=== PATIENT | female | born 1995 | race Caucasian/White ===

== ENCOUNTER 2019-06-06 06:03 | Day surgery (SDC) | payer MEDICAID, OTHER ==
[2019-06-04 11:19] VITALS: BMI 59.3
[2019-06-06] MEDS ORDERED: ALPRAZolam 0.25 MG TAB PO PRN (06:34)
[2019-06-06] MEDS ORDERED: NITROGLYCERIN SL TABS 0.4 MG TAB SUBLINGUAL PRN (06:34)
[2019-06-06] MEDS ORDERED: ALPRAZolam 0.5 MG TAB PO PRN (06:34)
[2019-06-06] MEDS ORDERED: SODIUM CHLORIDE 0.9% 1,000 ML in EMPTY BAG 1 BAG IV ONE (06:34)
[2019-06-06] MEDS ORDERED: ATORVASTATIN 80 MG TAB PO ONE (07:00)
[2019-06-06] MEDS ORDERED: ASPIRIN 325 MG TAB PO ONE (07:00)
[2019-06-06 07:08] VITALS: TEMP 97.8
[2019-06-06] MEDS ORDERED: SODIUM CHLORIDE 0.9% 1,000 ML IV ONE (07:08)
[2019-06-06 07:21] LABS: Basophils % (A) 0 %; Eosinophils # (A) 0.1 k/uL (0-0.7); Eosinophils % (A) 1 %; HGB 14.2 gm/dL (11.4-16.0); Lymphocytes # (A) 1.9 k/uL (1.0-4.8); Lymphocytes % (A) 24 %; MCH 29.1 pg (25.0-35.0); MCHC 32.2 g/dL (31.0-37.0); MCV 90.3 fL (80.0-100.0); Mean Platelet Volume 9.2; Monocytes # (A) 0.5 k/uL (0-1.0); Monocytes % (A) 6 %; Neutrophils # (A) 5.3 k/uL (1.3-7.7); Neutrophils % (A) 67 %; Platelet Count 200 k/uL (150-450); RBC 4.87 m/uL (3.80-5.40); RDW 12.5 % (11.5-15.5); WBC 7.9 k/uL (3.8-10.6)
[2019-06-06] MEDS ORDERED: VERAPAMIL 2.5 MG/ML 2 ML AMP ONE (07:27)
[2019-06-06] MEDS ORDERED: LIDOCAINE 1% INJ 10MG/ML (20 ML MDV) ONE (07:27)
[2019-06-06] MEDS ORDERED: HEPARIN SODIUM 1,000 UN/ML (10ML VL) ONE (07:28)
[2019-06-06] MEDS ORDERED: fentaNYL (PF) 50 MCG/ML 2 ML AMP ONE (07:28)
[2019-06-06 07:30] LABS: African American GFR (CKD) >90 (>60 ml/min/1.73 sqM); Anion Gap 9 mmol/L; Blood Urea Nitrogen 17 mg/dL (7-17); Calcium 9.5 mg/dL (8.4-10.2); Carbon Dioxide 26 mmol/L (22-30); Chloride 105 mmol/L (98-107); Glucose 96 mg/dL (74-99); Non-African American GFR(CKD) >90 (>60 ml/min/1.73 sqM); Potassium 4.3 mmol/L (3.5-5.1); Sodium 140 mmol/L (137-145)
[2019-06-06] MEDS ORDERED: fentaNYL (PF) 50 MCG/ML 2 ML AMP IV ONE (07:41)
[2019-06-06] MEDS ORDERED: LIDOCAINE 1% INJ 10MG/ML (20 ML MDV) SQ ONE (07:42)
[2019-06-06] MEDS ORDERED: VERAPAMIL SYRINGE (5 MG/10 ML) INTRAARTER ONE (07:43)
[2019-06-06] MEDS ORDERED: MIDAZOLAM PF (FBP) 2 MG/2 ML VIAL IV ONE (07:46)
[2019-06-06] MEDS ORDERED: HEPARIN SODIUM 1,000 UN/ML (10ML VL) IV ONE (08:00)
[2019-06-06 08:07] LABS: O2 Sat Blood Gas 97.1 %
[2019-06-06 08:11] LABS: O2 Sat Blood Gas 74.5 %
[2019-06-06 08:14] LABS: O2 Sat Blood Gas 74.7 %
[2019-06-06] MEDS ORDERED: IOPAMIDOL-370 125ML BTL INJ ONE (08:20)
[2019-06-06] MEDS ORDERED: RX INFO: IV CONTRAST WAS GIVEN 1 EACH MISC MISCELLANE PRN (08:23)
[2019-06-06] MEDS ORDERED: ALBUTEROL NEBULIZED 2.5 MG/3 ML INHALATION PRN (08:24)
[2019-06-06] MEDS ORDERED: AZELASTINE HCL BOTH EYES PRN (08:24)
[2019-06-06] MEDS ORDERED: ALBUTEROL INHALER 60 PUFF/8 GM INHALER INHALATION PRN (08:24)
[2019-06-06] MEDS ORDERED: SODIUM CHLORIDE 0.9% 1,000 ML IV SCH (08:30)
--- NOTE | 2019-06-06 08:45 | CC ---
CARDIAC CATHETERIZATION REPORT Mrs. Mcmillan is a 23-year-old female with no prior documented history of coronary artery disease who recently was found to have evidence of cardiomyopathy of unclear etiology and she had symptoms of dyspnea on exertion. In view of that, recommendation was made regarding cardiac catheterization. The procedure as well as the risks and the complications were discussed with the patient who is in full understanding and agreement. PROCEDURE: Patient was brought to the cath lab radiology technician in a fasting semi-sedated state after receiving fentanyl and Benadryl and achieving moderate conscious sedated state. Using Xylocaine anesthesia in the Seldinger technique, a 6-Canadian sheath was introduced in the right radial artery. The intravenous catheter in the right basilic vein was exchanged over wire to a 6-Canadian sheath. Following that, right heart catheterization was performed using [place]-Margie catheter. Multiple pressures and samples were obtained. Cardiac output by thermodilution was calculated. Following that, selective right and left coronary angiography performed using 5-Canadian 3.5 bend right and left Shawn catheter. Multiple views of the coronary artery including hemiaxial views were obtained. Following that, 5- Canadian tight pigtail catheter was introduced in the left ventricle and a 30-degree CLEMENTS view of the left ventricle was obtained. Following that, catheter and sheaths were removed. Hemostasis was obtained with deployment of a TR band and compression of the venous sheath. There was no immediate complication. Of note, the patient received 5000 units of intravenous heparin as well as intra-arterial verapamil. FINDINGS: HEMODYNAMICS: Right atrial saturation 75%, pulmonary artery saturation 75%, femoral artery saturation of 97%. Pulmonary artery systolic pressure of 30 with a diastolic of 14 and a mean of 20 mmHg. Pulmonary capillary wedge pressure: A-wave of 9, V-wave of 10 with a mean of 8 mmHg. Right ventricular systolic pressure of 32 mmHg with an end- diastolic of 6 mmHg. Right atrial A-wave of 4, V-wave of 6 with a mean of 4 mmHg. There was no gradient across the aortic valve. The left ventricular end-diastolic pressure was 16 to 18 mmHg. Cardiac output by thermodilution of 8.6 L/minute. CORONARIES: LEFT MAIN: This is a short size vessel large in caliber bifurcating left circumflex, left anterior descending artery. Left main coronary artery has no evidence of high- grade stenosis. LEFT ANTERIOR DESCENDING ARTERY: This is a large-sized vessel reaching to the apex, giving rise to a very proximal diagonal branch. Left anterior descending artery as well as branches have no evidence of obstructive coronary artery disease. LEFT CIRCUMFLEX: This is a nondominant large vessel giving rise to a large obtuse marginal branch. The left circumflex as well as branches have no evidence of obstructive coronary artery disease. RIGHT CORONARY ARTERY: This is a dominant vessel large in caliber bifurcating distally PDA and posterolateral segment and branches. The right coronary artery as well as branches have no evidence of obstructive coronary artery disease. LEFT VENTRICULOGRAM: Left ventriculogram was performed in 30-degree CLEMENTS view and revealed evidence of global hypokinesis. The estimated ejection fraction is 40%. There was no significant mitral regurgitation. CONCLUSION: 1. Normal coronary arteries. 2. Evidence of nonischemic cardiomyopathy with a moderately impaired left ventricular systolic function. 3. No evidence of pulmonary hypertension. MMODL / IJN: [id number] /
[2019-06-06] MEDS ORDERED: METOPROLOL TARTRATE 25 MG TAB PO SCH (09:00)
[2019-06-06] MEDS ORDERED: LISINOPRIL 5 MG TAB PO SCH (09:00)
[2019-06-06] MEDS ORDERED: MONTELUKAST 10 MG TAB PO SCH (09:00)
[2019-06-06] MEDS ORDERED: SERTRALINE 50 MG TAB PO SCH (09:00)
[2019-06-06] MEDS ORDERED: ACETAMINOPHEN TAB 325 MG TAB PO PRN (09:06)
[2019-06-06 15:03] VITALS: RESP 16
[2019-06-06 19:56] VITALS: BP 112/65; PULSE 100
== END 2019-06-06 13:31 | disposition home or self-care (01) ==
LOC: CATHCVL 06:03
PROVIDERS: ATTEND Internal Medicine Interventional Cardiology
DX: I42.8 Other cardiomyopathies (principal); R06.00 Dyspnea, unspecified; R06.09 Other forms of dyspnea; Z79.3 Long term (current) use of hormonal contraceptives; Z79.51 Long term (current) use of inhaled steroids; Z79.899 Other long term (current) drug therapy; Z88.0 Allergy status to penicillin; Z88.8 Allergy status to other drugs, medicaments and biological substances; Z82.49 Family history of ischemic heart disease and other diseases of the circulatory system
CPT/HCPCS: 93460; 81025; 80048; 85018; 82810; 85025; C1751; C1894; J2001; J3010; J1644; Q9967; J2250

== ENCOUNTER → 2019-08-20 | Outpatient (CLI) | payer MEDICAID ==
[2019-08-21 04:19] LABS: T4, Free (Free Thyroxine) 1.1 ng/dL (0.80-1.80)
== END | disposition home or self-care (01) ==
LOC: LABT 15:39
DX: R79.89 Other specified abnormal findings of blood chemistry (principal)
CPT/HCPCS: 36415; 84439; 84481

== ENCOUNTER → 2022-08-05 | Outpatient (CLI) | payer OTHER ==
[2022-08-06 02:57] LABS: African American GFR (CKD) 135.8 (60.0-200.0); Anion Gap 15.3 mmol/L (10.00-18.00); BUN/Creat Ratio 25.07 Ratio (12.00-20.00); Blood Urea Nitrogen 17.5 mg/dL (9.0-27.0); Carbon Dioxide 21.1 mmol/L (20.0-27.5); Non-African American GFR(CKD) 117.2 (60.0-200.0); Potassium 4.3 mmol/L (3.5-5.5)
== END | disposition home or self-care (01) ==
LOC: LABWHC1 15:52
PROVIDERS: ATTEND Internal Medicine Interventional Cardiology
DX: I42.8 Other cardiomyopathies (principal)
CPT/HCPCS: 36415; 80048

== ENCOUNTER 2023-03-30 10:40 | Day surgery (SDC) | payer OTHER ==
[2023-03-28 12:25] VITALS: BMI 58.4
--- NOTE | 2023-03-29 12:29 | P.HPOR ---
History of Present Illness H&P Date: 03/29/23 Subjective: This is a 26 year old female that presents today for follow up evaluation regarding a several month history of right radial sided wrist pain. 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 She has tried a soft wrist wrap with minimal relief. She responded well to an injection several months ago and but only had 2 weeks of relief. She denies any paresthesias or recent injury or inciting event. Physical Examination: RUE: AIN/PIN/Radial/Ulnar/Median motor intact. Radial/Ulnar/Median SILT. 2+/4 Radial/Ulnar pulses palpated. 5/5 APB, 5/5 FDI. Positive Finkelsteins, negative CMC grind, negative Durkan's compression. Imaging: X-Rays of the right wrist reviewed from prior visit demonstrate no acute osseus abnormality with no fracture/dislocation. Impression: 1.) Right DeQuervains tenosynovitis Plan: Diagnosis and treatment options were discussed with the patient. She has failed 2 injections and bracing for her right DeQuervain's stenosing tenosynovitis and would like to pursue a right wrist first dorsal compartment release. Risks and benefits of surgery including bleeding, infection, damage to surrounding tissue, need for further surgery, residual numbness were discussed and the patient wished to go forward with surgery. PCP, pulmonary, and cardiac clearance are requested. We will plan for MAC anesthesia. Patient notes a history of nausea with anesthesia previously. -Nicanor Traylor DO Orthopedic Hand/Upper Extremity Surgeon Past Medical History Past Medical History: Asthma, Heart Failure, GERD/Reflux, Sleep Apnea/CPAP/BIPAP Additional Past Medical History / Comment(s): frequent UTI's, "borderline anemic", CARDIOMYOPATHY, IBS History of Any Multi-Drug Resistant Organisms: None Reported Past Surgical History: Cholecystectomy, Heart Catheterization, Hernia Repair, Tonsillectomy Additional Past Surgical History / Comment(s): EGD Past Anesthesia/Blood Transfusion Reactions: Family History of Problems w/ Anesthesia, Motion Sickness, Postoperative Nausea & Vomiting (PONV) Additional Past Anesthesia/Blood Transfusion Reaction / Comment(s): father comes out difficult takes a while to regulate b/p Past Psychological History: Anxiety, Depression Smoking Status: Never smoker Past Alcohol Use History: Rare Past Drug Use History: None Reported - Past Family History Mother Family Medical History: No Reported History Medications and Allergies Home Medications Medication Instructions Recorded Confirmed Type Sertraline HCl [Zoloft] 100 mg PO DAILY 03/30/15 03/28/23 History Albuterol Nebulized [Ventolin 2.5 mg INHALATION Q6H PRN 06/04/19 03/28/23 History Nebulized] Ascorbic Acid [Vitamin C] 500 mg PO DAILY PRN 06/04/19 03/28/23 History Azelastine HCl [Optivar 0.05% 1 drop BOTH EYES DAILY PRN 06/04/19 03/28/23 History Ophth Soln] Benzonatate [Tessalon Perles] 200 mg PO TID PRN 06/04/19 03/28/23 History Biotin [Biotin Disolve] 1,000 mcg PO DAILY 06/04/19 03/28/23 History Cranberry Fruit Extract [Cranberry] 4,200 mg PO DAILY 06/04/19 03/28/23 History Loratadine [Claritin] 10 mg PO DAILY 06/04/19 03/28/23 History Medroxyprogesterone Acetate 150 mg IM Q3M 06/04/19 03/28/23 History [Depo-Provera] Montelukast [Singulair] 10 mg PO DAILY 06/04/19 03/28/23 History Budesonide 0.5 mg INHALATION BID PRN 03/28/23 03/28/23 History Calcium Carbonate [Calcium] 600 mg PO DAILY 03/28/23 03/28/23 History Dapagliflozin Propanediol [Farxiga] 10 mg PO DAILY 03/28/23 03/28/23 History Yoly 500 mg PO DAILY 03/28/23 03/28/23 History Melatonin [Melatonin ER] 10 mg PO HS PRN 03/28/23 03/28/23 History Metoprolol Succinate [Toprol XL] 100 mg PO DAILY 03/28/23 03/28/23 History Omeprazole 20 mg PO BID 03/28/23 03/28/23 History Sacubitril/Valsartan [Entresto 97 1 each PO BID 03/28/23 03/28/23 History mg-103 mg Tablet] Semaglutide [Wegovy] 1.7 mg SQ Q7D 03/28/23 03/28/23 History Spironolactone 0.5 tab PO DAILY 03/28/23 03/28/23 History Turmeric Root Extract [Turmeric] 500 mg PO DAILY 03/28/23 03/28/23 History hydrOXYzine HCL [Atarax] 10 mg PO TID PRN 03/28/23 03/28/23 History Allergies Allergy/AdvReac Type Severity Reaction Status Date / Time azithromycin Allergy Anaphylaxis Verified 06/06/19 07:10 [From Zithromax Z-Shahbaz] egg Allergy Unknown Verified 03/28/23 11:59 latex Allergy Itching Verified 06/06/19 07:10 red dye Allergy Unknown Verified 03/28/23 11:59 amoxicillin AdvReac Nausea & Verified 06/06/19 07:10 Vomiting diphenhydramine HCl AdvReac Nausea & Verified 06/06/19 07:10 [From Benadryl] Vomiting Physical Examination Osteopathic Statement: *. No significant issues noted on an osteopathic structural exam other than those noted in the History and Physical/Consult.
[~2023-03-30 10:40] MED LIST: DEXAMETHASONE SOD PHOSPHATE 4 MG/ML 1 ML VIAL IV ONE; HYDROmorphone 0.5 MG/0.5 ML SYRINGE IVP PRN; LACTATED RINGERS 1,000 ML IV SCH; ONDANSETRON 4 MG/2 ML VIAL IVP ONE; Pre Op ABX Message 1 EACH MISC MISCELLANE ONE; SCOPOLAMINE 1 MG/72 HR PATCH TRANSDERM ONE; droPERidol 5 MG/2 ML VIAL IVP ONE
[2023-03-30 11:19] VITALS: TEMP 97.1
[2023-03-30 11:23] LABS: Glucose,Whole Blood 75 mg/dL (70-110)
[2023-03-30] MEDS ORDERED: KETAMINE 10 MG/ML 20 ML VIAL ONE (11:42)
[2023-03-30] MEDS ORDERED: MIDAZOLAM 2 MG/2 ML VIAL ONE (11:42)
[2023-03-30] MEDS ORDERED: fentaNYL (PF) 50 MCG/ML 2 ML AMP ONE (11:42)
[2023-03-30] MEDS ORDERED: PROPOFOL 10 MG/ML 20 ML VIAL IV ONE (11:42)
[2023-03-30] MEDS ORDERED: ONDANSETRON 4 MG/2 ML VIAL ONE (11:42)
[2023-03-30] MEDS ORDERED: LIDOCAINE 2% (PF) 20 MG/ML 5 ML VIAL SQ ONE (11:51)
[2023-03-30] MEDS ORDERED: BUPIVACAINE (PF) 0.5% 30 ML VIAL MISCELLANE ONE (11:51)
[2023-03-30 13:18] VITALS: BP 95/67; PULSE 75; RESP 18
--- NOTE | 2023-03-30 15:20 | P.OP ---
Date of Procedure: 03/30/23 Preoperative Diagnosis: Right DeQuervains tenosynovitis Postoperative Diagnosis: Right DeQuervains tenosynovitis Procedure(s) Performed: 1.) Right first dorsal compartment release (-) 2.) Right accessory extensor pollicis brevis tendon tear repair at level of wrist Anesthesia: MAC Surgeon: Nicanor Traylor Estimated Blood Loss (ml): 0 Pathology: none sent Condition: stable Disposition: PACU Description of Procedure: This is a 27 year old female who presents today for a left first dorsal compartment release after having failed conservative treatment. Risks and benefits of surgery were discussed with the patient including bleeding, damage to surrounding tissue, infection, need for further surgery as well as risks of anesthesia including pulmonary embolism and even and the patient wished to proceed with surgical intervention. The patients was seen in the pre-operative area by myself. Consent and H&P were completed and updated. The correct extremity was marked in the pre-operative area by myself and all other questions were answered. Operative Narrative: The patient was brought to the operating room by the department of anesthesia. They remained on the portable stretcher and a rolling hand table was brought to the side of the operative extremity. The patient was then drifted off to sleep by the department of anesthesia. A nonsterile tourniquet was then applied to the operative extremity and the right upper extremity was then prepped and draped in normal sterile fashion. Pre-operative time out was performed indicating the correct patient, procedure and laterality. All in the room agreed. MAC anesthesia was utilized and a 50:50 mixture of 1% Lidocaine and 0.5% bupivacaine was injected into the subcutaneous tissues of the radial wrist skin, 10ccs total. Pre-operative antibiotics were given prior to skin incision. The operative extremity was the exsanguinated with an esmarch bandage and the tourniquet was inflated to 250mmHg. 15 blade scalpel was used to make a horizontal skin incision centered over the first dorsal compartment of the left wrist. Blunt dissection was taken down to the proximal edge of the first dorsal compartment while taking care to identify and protect branches of the superficial radial sensory nerve. The first dorsal compartment was released in its entirety from proximal to distal. APL and EPB tendons were identified and the patient had an accessory EPB tendon located in a separate sheath which was identified. Due to patients body large body habitus with a known BMI of 57.3 a significant amount of retraction force was needed to visualize the first dorsal compartment and in doing so there was an iatrogenic tear of the accessory EPB tendon which was very small measuring less than 2mm in width. The incision was extended distally and the distal accessory tendon end was identified and decision to go forward with primary tendon repair. A 4-0 Ethibond suture was utilized in multiple figure of 8 fashion to approximate the tendon edges and successfully repair was performed. Skin closure was performed with 4-0 Monocryl suture, Mastisol and steri strips. Thumb spica splint was applied consisting of plaster, 4x4's, cast padding, and an ayana wrap. The patient was then woken by the department of anesthesia and transferred to PACU in stable condition. Findings of iatrogenic tendon tear intra-operatively were discussed with family post operatively and they expressed understanding and were notified of the tendon tear which was successfully repaired. Modifier 22 is applied to the case due to the increased difficulty of the procedure due to the patients super morbid obesity with a BMI of 57.3 making normal parts of the surgery more difficult than expected. Nicanor Traylor D.O. Orthopedic Hand/Upper Extremity Surgeon
== END 2023-03-30 13:29 | disposition home or self-care (01) ==
LOC: OR 10:40
PROVIDERS: ATTEND Orthopaedic Surgery Hand Surgery
DX: M65.4 Radial styloid tenosynovitis [de Quervain] (principal); J45.909 Unspecified asthma, uncomplicated; I50.9 Heart failure, unspecified; K21.9 Gastro-esophageal reflux disease without esophagitis; G47.33 Obstructive sleep apnea (adult) (pediatric); Z90.89 Acquired absence of other organs; Z79.899 Other long term (current) drug therapy
CPT/HCPCS: 81025; 25000; J2250; J1100; J2405; J3010; J2704; J2001

== ENCOUNTER → 2024-05-31 | Outpatient (CLI) | payer OTHER ==
[2024-05-31 11:37] LABS: ALT 20 U/L (4-34); AST 19 U/L (14-36); African American GFR (CKD) >90 (>60 ml/min/1.73 sqM); Albumin/Globulin Ratio 1.5; Alkaline Phosphatase 75 U/L (38-126); Anion Gap 7 mmol/L; Blood Urea Nitrogen 12 mg/dL (7-17); Calcium 9.5 mg/dL (8.4-10.2); Carbon Dioxide 25 mmol/L (22-30); Chloride 108 mmol/L (98-107); Globulin 2.6 g/dL; Glucose 100 mg/dL (74-99); Non-African American GFR(CKD) >90 (>60 ml/min/1.73 sqM); Potassium 4.3 mmol/L (3.5-5.1); Sodium 140 mmol/L (137-145); Total Bilirubin 0.6 mg/dL (0.2-1.3); Total Protein 6.6 g/dL (6.3-8.2)
[2024-05-31 11:43] LABS: NT-Pro-B-Type Natriuretic Pept 156 pg/mL
== END | disposition home or self-care (01) ==
LOC: LABWHC1 10:37
PROVIDERS: ATTEND Nurse Practitioner Adult Health
DX: I42.8 Other cardiomyopathies (principal); I50.22 Chronic systolic (congestive) heart failure
CPT/HCPCS: 36415; 80053; 83880

== ENCOUNTER → 2024-08-06 | Outpatient (CLI) | payer OTHER | END | disposition home or self-care (01) | LOC: LABWHC1 16:13 | PROVIDERS: ATTEND Nurse Practitioner Family | DX: Z88.9 Allergy status to unspecified drugs, medicaments and biological substances (principal) | CPT/HCPCS: 36415; 82785 ==

== ENCOUNTER → 2025-03-15 | Outpatient (CLI) | payer OTHER ==
[2025-03-15 15:30] LABS: NT-Pro-B-Type Natriuretic Pept 98 pg/mL (0-125)
[2025-03-15 15:31] LABS: Basophils # (A) 0.02 X 10*3/uL (0.00-0.10); Basophils % (A) 0.3 %; Eosinophils # (A) 0.10 X 10*3/uL (0.04-0.35); Eosinophils % (A) 1.5 %; HCT 45.8 % (37.2-46.3); HGB 14.8 g/dL (12.0-15.0); Immature Grans, Automated 0.20 %; Lymphocytes # (A) 1.53 X 10*3/uL (0.90-5.00); Lymphocytes % (A) 23.6 %; MCH 28.7 pg (27.0-32.0); MCHC 32.3 g/dL (32.0-37.0); MCV 88.9 FL (80.0-97.0); Monocytes # (A) 0.55 X 10*3/uL (0.20-1.00); Monocytes % (A) 8.5 %; NRBC Per 100 WBC 0 X 10*3/uL (0.00-0.01); Neutrophils # (A) 4.28 X 10*3/uL (1.80-7.70); Neutrophils % (A) 65.9 %; Platelet Count 193 X 10*3/uL (140-440); RBC 5.15 X 10*6/uL (4.10-5.20); RDW 13.0 % (11.5-14.5); WBC 6.49 X 10*3/uL (4.50-10.00)
[2025-03-15 16:21] LABS: ALT 20 U/L (8-44); AST 14 U/L (13-35); Albumin 4.3 g/dL (3.8-4.9); Albumin/Globulin Ratio 1.79 Ratio (1.60-3.17); Alkaline Phosphatase 78 U/L (41-126); Anion Gap 12.90 mmol/L (4.00-12.00); BUN/Creat Ratio 23.50 Ratio (12.00-20.00); Blood Urea Nitrogen 14.1 mg/dL (9.0-27.0); Calcium 9.3 mg/dL (8.7-10.3); Carbon Dioxide 21.1 mmol/L (21.6-31.8); Chloride 108 mmol/L (96-109); Cholesterol 189.00 mg/dL (0.00-200.00); Ferritin 116.0 ng/mL (10.0-291.0); Globulin 2.4 g/dL (1.6-3.3); Glucose 95 mg/dL (70-110); HDL Cholesterol 38.50 mg/dL (40.00-60.00); Iron 63 UG/DL (50-170); LDL Cholesterol,Calculated 130.3 mg/dL (0.0-131.0); Potassium 4.2 mmol/L (3.5-5.5); Sodium 142 mmol/L (135-145); Total Iron Binding Capacity 298 UG/DL (228-460); Total Protein 6.7 g/dL (6.2-8.2); Triglycerides 101.00 mg/dL (0.00-149.00); VLDL Calculation 20.20 mg/dL (5.00-40.00)
[2025-03-15 19:51] LABS: Bilirubin,Urine Negative (Negative); Blood,Urine Negative (Negative); Color,Urine Yellow (Yellow); Ketones,Urine Trace (Negative); Nitrite,Urine Negative (Negative); PH, Urine 5.5; Specific Gravity,Urine 1.026 (1.001-1.030); Urobilinogen,Urine 0.2 E.U./DL
[2025-03-15 19:59] LABS: Bacteria,Urine None Seen (None Seen)
== END | disposition home or self-care (01) ==
LOC: LABWHC1 10:54
PROVIDERS: ATTEND Nurse Practitioner Adult Health
DX: I42.8 Other cardiomyopathies (principal); I50.22 Chronic systolic (congestive) heart failure; E66.813 Obesity, class 3; E55.9 Vitamin D deficiency, unspecified; N39.0 Urinary tract infection, site not specified; Z79.899 Other long term (current) drug therapy
CPT/HCPCS: 36415; 80053; 80061; 81001; 82306; 82728; 83036; 83540; 83550; 83880; 85025